=== PATIENT | female | born 1990 | race Caucasian/White ===

== ENCOUNTER 2016-11-16 22:12 | Emergency (ER) | payer BC, OTHER ==
[~2016-11-16] VITALS: Ht 162.6 cm; Wt 61.0 kg
[2016-11-16 22:16] VITALS: Ht 162.6 cm; Wt 61.0 kg
--- NOTE | 2016-11-17 00:27 | ERD ---
ER Documentation Chief Complaint Date/Time DATE: 11/17/16 TIME: 00:26 Chief Complaint requesting dressing change on the left arm HPI 25-year-old female who was recently admitted for endocarditis 3 weeks ago at [place] comes to the emergency room for a PICC line dressing change. Patient's PICC line is intact in the left upper extremity and has been functioning fine and she has been giving herself Rocephin 2 g daily. She states that she had some help at home, intermittently with her mother who is a physician who change the dressing for her at this time she has no help and was not able to get home health and therefore comes in for the dressing change. She denies any fevers, chills, chest pain or shortness of breath currently. ROS All systems reviewed and are negative except as per history of present illness. Allergies Allergies: Coded Allergies: No Known Allergy (Unverified , 11/16/16) Physical Exam Vitals Vital Signs Date Time Temp Pulse Resp B/P Pulse Ox O2 Delivery O2 Flow Rate FiO2 11/16/16 22:16 97.5 72 20 122/80 100 Physical Exam General: Well-developed, well-nourished. The patient appears in no acute distress. HEENT: Head is normocephalic, atraumatic. No scleral icterus. Lungs: Clear to auscultation. Normal air movement. Heart: Regular rate and rhythm. S1 and S2 are normal. No murmurs, gallops, or rubs. Abdomen: Soft, nontender, nondistended. Bowel sounds are normoactive. Extremities: PICC line intact in the left upper extremity, no erythema, no drainage, no tenderness. Neurologic: Alert and oriented 3. No focal deficits. Skin: Normal turgor. No rash or lesions. Procedures/MDM 25-year-old female comes in for PICC line dressing change. There is no malfunction, no evidence of cellulitis or line infection. Patient's vitals are stable, well-appearing and will be discharged home. Departure Diagnosis: Primary Impression: Dressing change Condition: Good Patient Instructions: Dressing Change, Picc Line Care Additional Instructions: Call your primary care doctor TOMORROW for an appointment during the next 1-2 days.See the doctor sooner or return here if your condition worsens before your appointment time. KILLIAN RUIZ PA-C Nov 17, 2016 00:27
== END 2016-11-17 01:43 | disposition home or self-care (01) ==
LOC: FTE 22:12
DX: Z48.00 Encounter for change or removal of nonsurgical wound dressing (principal)
CPT/HCPCS: 99281